=== PATIENT | female | born 1985 | race Hispanic/Latino ===

== ENCOUNTER 2019-06-19 12:48 | Emergency (ER) | payer MEDICAID, OTHER | END 2019-06-19 15:04 | disposition home or self-care (01) | LOC: EDH 12:48 | DX: O20.0 Threatened abortion (principal); Z3A.01 Less than 8 weeks gestation of pregnancy | CPT/HCPCS: 36415; 84702 ==

== ENCOUNTER 2020-01-30 22:02 | Inpatient (IN) | payer MEDICAID ==
[~2020-01-30] VITALS: Ht 167.6 cm; Wt 98.9 kg
[2020-01-31] MEDS ORDERED: OXYTOCIN-LR 20 UNITS/1000 ML 1,000 ML IV ONE ×2 (03:58→18:28)
[2020-01-31] MEDS ORDERED: OXYTOCIN 10 USP UNITS/ML 20 UNIT in LACTATED RINGERS 1000ML 1,000 ML IV SCH (04:00)
[2020-01-31] MEDS ORDERED: FENTANYL CITRATE PF 50 MCG/1 ML 2ML VIAL ONE (16:51)
[2020-01-31] MEDS: LACTATED RINGERS 1000ML 1,000 ML IV PRN (21:24)
[2020-02-01] MEDS ORDERED: OXYTOCIN-LR 20 UNITS/1000 ML 1,000 ML IV ONE ×2 (04:30→07:48)
[2020-02-01] MEDS: LACTATED RINGERS 1000ML 1,000 ML IV PRN (05:30)
[2020-02-01] MEDS ORDERED: MISOPROSTOL 200 MCG TABLET ONE (07:46)
[2020-02-01] MEDS ORDERED: LIDOCAINE HCL 1% 20 ML VIAL ONE (07:47)
[2020-02-01] MEDS ORDERED: METHYLERGONOVINE MALEATE 0.2 MG/1 ML ML ONE (07:47)
[2020-02-01] MEDS ORDERED: DIPH,PERTUSS(ACELL),TET VAC/PF 0.5 ML VIAL IM PRN (08:30)
[2020-02-01] MEDS ORDERED: BENZOCAINE/LANOLIN/ALOE VERA 60 ML AEROSOL TP PRN (08:30)
[2020-02-01] MEDS ORDERED: ACETAMINOPHEN-CODEINE 300/30MG TAB PO PRN (08:30)
[2020-02-01] MEDS ORDERED: LANOLIN 30GM OINTMENT TP PRN (08:30)
[2020-02-01] MEDS ORDERED: MEASLES/MUMPS/RUBELLA VACCINE, LIVE 0.5 ML/VIAL SQ PRN (08:30)
[2020-02-01] MEDS ORDERED: WITCH HAZEL 1 PAD TP PRN (08:30)
[2020-02-01] MEDS ORDERED: ACETAMINOPHEN 325 MG TAB PO PRN (08:30)
[2020-02-01 10:13] VITALS: BP 106/64; PULSE 66; RESP 18; TEMP 98.6
[2020-02-01] MEDS: DOCUSATE SODIUM 100 MG CAP PO SCH ×2 (11:06→21:23)
[2020-02-01 16:14] VITALS: BP 110/74; PULSE 73; RESP 18; TEMP 98.9
--- NOTE | 2020-02-01 19:10 | NUR ---
REPORT GIVEN TO VIRGINIE FLOWERS AND PATIENT CARE TRANSFERED AT THIS TIME.
[2020-02-01 19:33] VITALS: BP 113/72; PULSE 82; RESP 18; TEMP 99.2
[2020-02-01] MEDS: IBUPROFEN 600 MG TABLET PO PRN (20:12)
[2020-02-01 23:40] VITALS: BP 93/51; PULSE 81; RESP 18; TEMP 98.4
[2020-02-02 02:35] VITALS: BP 111/70; PULSE 70; RESP 18; TEMP 98.9
[2020-02-02] MEDS: IBUPROFEN 600 MG TABLET PO PRN (02:35)
[2020-02-02 06:57] VITALS: BP 109/70; PULSE 74; RESP 18; TEMP 98.4
--- NOTE | 2020-02-02 07:50 | NUR ---
ASSESSMENT DONE AND PATIENT STABLE AND DENIES PAIN. FUNDUS IS FIRM AND LOCHIA SMALL. HAS NO IVs AND TOLERATING ACTIVITY WITHOUT ANY PROBLEMS.
[2020-02-02] MEDS: DOCUSATE SODIUM 100 MG CAP PO SCH (08:43)
--- NOTE | 2020-02-02 10:15 | NUR ---
DISCHARGE INSTRUCTIONS GIVEN AND PATIENT VERBALIZED UNDERSTANDING AND HAD NO QUESTIONS. SCRIPT FOR PAIN MANAGEMENT GIVEN TO PATIENT AND VERBALIZED DOSAGE AND FREQUENCY EXPLAINED.
[2020-02-02 11:21] VITALS: BP 115/78; PULSE 67; RESP 18; TEMP 98.8
--- NOTE | 2020-02-02 11:33 | NUR ---
PATIENT WAS TAKEN VIA W/C CARRYING BABY IN ARMS TO FAMILY VEHICLE AND WERE BOTH DISCHARGED TO HER . PATIENT IS STABLE AND DENIES ANY PROBLEMS.
== END 2020-02-02 11:33 | disposition home or self-care (01) | DRG 560 ==
LOC: LDH 22:02 → PREOBSVTOIN 01-31 22:01 → WSH 02-01 10:15
PROVIDERS: ADMIT Obstetrics & Gynecology; ATTEND Obstetrics & Gynecology
PROC: 3E033VJ Introduction of Other Hormone into Peripheral Vein, Percutaneous Approach (ICD-10-PCS; 2020-01-31)
PROC: 10E0XZZ Delivery of Products of Conception, External Approach (ICD-10-PCS; principal; 2020-02-01)
PROC: 3E0R3BZ Introduction of Anesthetic Agent into Spinal Canal, Percutaneous Approach (ICD-10-PCS; 2020-02-01)
PROC: 00HU33Z Insertion of Infusion Device into Spinal Canal, Percutaneous Approach (ICD-10-PCS; 2020-02-01)
PROC: 0KQM0ZZ Repair Perineum Muscle, Open Approach (ICD-10-PCS; 2020-02-01)
PROC: 10907ZC Drainage of Amniotic Fluid, Therapeutic from Products of Conception, Via Natural or Artificial Opening (ICD-10-PCS; 2020-02-01)
DX: O69.81X0 Labor and delivery complicated by cord around neck, without compression, not applicable or unspecified (principal); Z37.0 Single live birth; O70.1 Second degree perineal laceration during delivery; Z3A.39 39 weeks gestation of pregnancy; Z20.828 Contact with and (suspected) exposure to other viral communicable diseases